=== PATIENT | male | born 2000 | race Hispanic/Latino ===

== ENCOUNTER 2021-06-16 08:19 | Emergency (ER) | payer OTHER, BC, SELFPAY ==
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
[2021-06-16 08:15] VITALS: BP 125/84; PULSE 90; RESP 18; TEMP 36.2; O2SAT 100
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
[2021-06-16] MEDS: ONDANSETRON INJ 4 MG/2 ML VIAL IV PUSH (09:25)
[2021-06-16 09:31] LABS: Basophils Percent Auto 0.7 % (0.2-1.2); Eosinophils Absolute Auto 0.1 K/mm3 (0-0.3); Hematocrit 48.6 % (42.0-52.0); Hemoglobin 16.7 g/dL (14.0-18.0); Immature Granulocyte Absolute 0.02 K/mm3 (0.00-0.031); Immature Granulocyte Percent A 0.4 % (0-0.5); Lymphocytes Percent Auto 25.7 % (18.3-44.2); Mean Corpuscular HGB Conc 34.4 g/dl (32-36); Mean Corpuscular Hemoglobin 31.6 pg (26-34); Monocytes Absolute Auto 0.4 K/mm3 (0.1-0.6); Monocytes Percent Auto 6.6 % (2.6-8.5); Neutrophils Absolute Auto 3.5 K/mm3 (1.3-6.7); Neutrophils Percent Auto 64.6 % (45.5-73.1); Platelet Count Result 245 k/mm3 (150-375); Red Blood Count 5.28 M/mm3 (4.6-6.20); Red Cell Distribution Width 12.7 % (11.5-14.5); White Blood Count 5.4 K/mm3 (4.5-10.0)
[2021-06-16 09:41] LABS: Partial Thromboplastin Time 29.7 SECONDS (22.3-36.8); Prothrombin Time 12.8 Seconds (11.1-14.7)
[2021-06-16 09:42] LABS: Alanine Aminotransferase 41 U/L (4-50); Albumin Level 4.8 g/dL (3.5-5.1); Alkaline Phosphatase 99 U/L (38-126); Anion Gap 10 mmol/L (8-16); Aspartate Amino Transferase 47 U/L (17-59); Blood Urea Nitrogen 6 mg/dL (9-20); Calcium 9.2 mg/dL (8.4-10.2); Carbon Dioxide 26 mmol/L (22-30); Chloride 106 mmol/L (98-107); Estimated CRCL calculation 106 ml/min; Estimated Glomerular Filt Rate > 60; Glucose 97 mg/dL (65-110); Lipase 83 U/L (23-300); Potassium 4.1 mmol/L (3.4-5.0); Sodium 142 mmol/L (137-145)
[2021-06-16 10:02] LABS: Troponin I < 0.012 ng/mL (0.000-0.034)
[2021-06-16 11:28] VITALS: BP 122/81; PULSE 77; RESP 14; O2SAT 99
== END 2021-06-16 11:24 | disposition home or self-care (01) ==
PROVIDERS: Physician Assistant; Emergency Provider Emergency Medicine
DX: S16.1XXA Strain of muscle, fascia and tendon at neck level, initial encounter (principal); E80.6 Other disorders of bilirubin metabolism; M89.8X8 Other specified disorders of bone, other site; N32.89 Other specified disorders of bladder; V43.52XA Car driver injured in collision with other type car in traffic accident, initial encounter
CPT/HCPCS: 36415; 70450; 71260; 72125; 72129; 72132; 74177; 80053; 83690; 84484; 85025; 85610; 85730; 96374; 96375; 99284; J0131; J2405; Q9967

== ENCOUNTER 2022-08-19 15:20 | Emergency (ER) | payer BC, SELFPAY ==
--- NOTE | ~2022-08-19 | CT_ITS ---
EXAMINATION: CT soft tissue neck w con DATE: 08/19/2022 16:51 INDICATION: Globus sensation. Dysphagia. TECHNIQUE: Computed tomography (CT) of the neck was performed with 75 mL Omnipaque-350 intravenous co ntrast. Automated exposure control and iterative reconstruction technique were employed. The dose-torin gth product was 504.49 mGy-cm. COMPARISON: CT cervical spine 06/16/2021 FINDINGS: There are no pathologically enlarged lymph nodes. The pharynx and larynx are normal. The ce rvical carotid arteries are normal. There is mild mucosal thickening in left maxillary sinus. The mas toid air cells are normal. 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 IMPRESSION: 1. No etiology for the patient's symptoms. Reviewed, dictated and finalized at location A.
[2022-08-19 15:23] VITALS: BP 119/78; PULSE 103; RESP 18; TEMP 36.3; O2SAT 100
[2022-08-19 16:22] LABS: Basophils Absolute Auto 0.1 K/mm3 (0.0-0.1); Basophils Percent Auto 0.6 % (0.2-1.2); Eosinophils Percent Auto 0.4 % (0-4.4); Hematocrit 51.9 % (42.0-52.0); Hemoglobin 17.8 g/dL (14.0-18.0); Immature Granulocyte Absolute 0.03 K/mm3 (0.00-0.031); Immature Granulocyte Percent A 0.3 % (0-0.5); Lymphocytes Absolute Auto 1.42 K/mm3 (0.9-3.2); Lymphocytes Percent Auto 13.1 % (18.3-44.2); Mean Corpuscular HGB Conc 34.3 g/dl (32-36); Mean Corpuscular Hemoglobin 31.1 pg (26-34); Mean Corpuscular Volume 90.7 fl (80-100); Mean Platelet Volume 12.2 fl (7.4-10.4); Monocytes Absolute Auto 0.6 K/mm3 (0.1-0.6); Monocytes Percent Auto 5.4 % (2.6-8.5); Neutrophils Absolute Auto 8.7 K/mm3 (1.3-6.7); Neutrophils Percent Auto 80.2 % (45.5-73.1); Platelet Count Result 296 k/mm3 (150-375); Red Blood Count 5.72 M/mm3 (4.6-6.20); White Blood Count 10.9 K/mm3 (4.5-10.0)
--- NOTE | 2022-08-19 16:26 | ED.GENADULT ---
HPI - General Adult General Chief complaint: Unspecified Stated complaint: FOOD STUCK IN THROAT Time Seen by Provider: 08/19/22 15:48 History of Present Illness HPI narrative: 22-year-old male here for evaluation for globus sensation. Patient states that he ate [employer] last night and vomited overnight. Since vomiting, he has had a sensation of a foreign body in the back of his throat. He is tolerating his secretions but he states that he has been unable to tolerate liquids or solids; vomits afterwards. Denies any fevers, chills, diarrhea or constipation. No shortness of breath, throat swelling, rashes. Related Data Allergies Allergy/AdvReac Type Severity Reaction Status Date / Time No Known Allergies Allergy Unverified 06/16/21 08:19 Review of Systems Review of Systems: Gen: Denies fevers or chills Eyes: Denies eye pain or visual change ENT: Reports globus sensation Respiratory: Denies shortness of breath or cough CV: Denies chest pain or palpitations GI: Denies abdominal pain nausea, emesis or diarrhea : denies burning, urgency, frequency or hematuria Musculoskeletal: Denies back pain or muscle pain Neuro: Denies numbness, tingling, weakness or focal weakness Skin: Denies rash Except as documented, all other systems reviewed and negative PMFSH Past Medical History Medical History No active medical problems Social History Social History (Updated 06/16/21 @ 09:20 by Alexandra Johnson PA-C) Smoking status: Never smoker Substance use: never Exam Narrative: APPEARANCE: Well appearing, no pain in distress, well-nourished. Head: Normocephalic and atraumatic. EYES: PERRLA/EOMI, conjunctivae clear NOSE: No nasal drainage EARS: External ear normal in appearance THROAT: Oropharynx is clear. Mucous membranes are moist. NECK: Supple. No adenopathy, no masses. RESPIRATORY: Airway patent, respirations nonlabored. Clear to auscultation bilaterally, no rales, rhonchi, wheezing. CARDIOVASCULAR: Regular rate and rhythm without murmurs, rubs, or gallops. ABDOMINAL: Normoactive bowel sounds. Soft, nontender, nondistended. No rebound tenderness or guarding. MUSCULOSKELETAL: Extremities are warm and well-perfused. Moves all extremities well. No edema. NEURO: Normal speech. No focal neurologic deficits. SKIN: Skin is warm and dry. No rashes. PSYCHIATRIC: Normal affect/mood. Course Vital Signs Vital signs: Vital Signs Temperature 97.3 F L 08/19/22 15:23 Pulse Rate 103 H 08/19/22 15:23 Respiratory Rate 18 08/19/22 15:23 Blood Pressure 119/78 08/19/22 15:23 Pulse Oximetry 100 08/19/22 15:23 Oxygen Delivery Room Air 08/19/22 15:23 Temperature 97.3 F L 08/19/22 15:23 Pulse Rate 103 H 08/19/22 15:23 Respiratory Rate 18 08/19/22 15:23 Blood Pressure 119/78 08/19/22 15:23 Pulse Oximetry 100 08/19/22 15:23 Oxygen Delivery Room Air 08/19/22 15:23 Medical Decision Making MDM Narrative Medical decision making narrative: 22-year-old male here for evaluation of globus sensation times several hours; able to tolerate his secretions but states he is vomiting after solids and liquids. He is nontoxic in appearance, he has no gross abnormalities in his oropharynx visualized. No evidence of respiratory distress on exam, slightly tachycardic to 103 likely due to stress. His basic labs are unremarkable aside from bilirubin of 2.7, mild transaminitis. Patient is not having any abdominal pain/ tenderness. CT of the neck shows no abnormalities or foreign body, airway is patent. Patient was given antiemetics and fluids with improvement of his symptoms. He is able to tolerate p.o. Shared decision-making was used with patient, agrees that no intra-abdominal imaging/further work-up in the ED is indicated at this time given lack of pain and improvement with medicines, he will be provided with GI follow-up as an outpatient. We disc
[2022-08-19 16:30] LABS: Alanine Aminotransferase 75 U/L (6-50); Albumin Level 5.5 g/dL (3.5-5.1); Alkaline Phosphatase 93 U/L (38-126); Anion Gap 12 mmol/L (8-16); Aspartate Amino Transferase 50 U/L (17-59); Bilirubin,Total 2.7 mg/dL (0.2-1.3); Blood Urea Nitrogen 8 mg/dL (9-20); Calcium 10.1 mg/dL (8.4-10.2); Carbon Dioxide 28 mmol/L (22-30); Chloride 101 mmol/L (98-107); Estimated CRCL calculation 113 ml/min; Estimated Glomerular Filt Rate > 60; Glucose 114 mg/dL (65-110); Potassium 4.5 mmol/L (3.4-5.0); Sodium 141 mmol/L (137-145)
[2022-08-19] MEDS: ONDANSETRON INJ 4 MG/2 ML VIAL IV PUSH (16:31)
[2022-08-19] MEDS: SODIUM CHLORIDE 0.9% IV 1,000 ML 999 ML IV CONT (16:31)
[2022-08-19 17:09] LABS: Lipase 80 U/L (23-300)
== END 2022-08-19 18:29 | disposition home or self-care (01) ==
PROVIDERS: Emergency Provider Physician Assistant; PCP Physician Assistant
DX: R09.89 Other specified symptoms and signs involving the circulatory and respiratory systems (principal)
CPT/HCPCS: 36415; 70491; 80053; 83690; 85025; 96361; 96374; 99284; J2405; J7030; Q9967